=== PATIENT | female | born 1945 | race Caucasian/White ===

== ENCOUNTER 2019-06-09 21:38 | Emergency (ER) | payer MEDICARE ==
[~2019-06-09] VITALS: Ht 160 cm; Wt 50.2 kg
[2019-06-09] MEDS ORDERED: TRAM50TA2 PO (22:47)
[2019-06-09] MEDS ORDERED: LIDO700A32 TD (22:47)
[2019-06-09] MEDS ORDERED: traMADol 50MG tablet PO ONE (22:50)
[2019-06-09 23:04] VITALS: BP 145/90
== END 2019-06-09 23:09 | disposition home or self-care (01) ==
LOC: ER 21:39
DX: S20.212A Contusion of left front wall of thorax, initial encounter (principal); Z88.5 Allergy status to narcotic agent; Z79.899 Other long term (current) drug therapy; W01.0XXA Fall on same level from slipping, tripping and stumbling without subsequent striking against object, initial encounter; Y93.01 Activity, walking, marching and hiking; Y92.89 Other specified places as the place of occurrence of the external cause; Y99.8 Other external cause status
CPT/HCPCS: 71045; 99283

== ENCOUNTER 2019-06-28 23:42 | Emergency (ER) | payer MEDICARE ==
[~2019-06-28] VITALS: Ht 160 cm; Wt 56.8 kg
[~2019-06-28 23:42] MED LIST: LIDO700A32 TD; TRAM50TA2 PO
[2019-06-29] MEDS ORDERED: predniSONE 20 mg tablet PO ONE (00:20)
[2019-06-29] MEDS ORDERED: ipratropium/albuterol 3ml nebule NEB ONE ×2 (00:20→01:40)
[2019-06-29 00:41] LABS: ALANINE AMINOTRANSFERASE 28 U/L (12-78); ALBUMIN 4.3 G/DL (3.4-5.0); ALBUMIN/GLOBULIN RATIO 1.2 (1.1-1.5); ALKALINE PHOSPHATASE 111 IU/L (46-116); ANION GAP 9 (8-16); ASPARTATE AMINO TRANSFERASE 28 U/L (10-37); BILIRUBIN,TOTAL 0.4 MG/DL (0.1-1.0); BLOOD UREA NITROGEN 9 MG/DL (7-18); BUN/CREATININE RATIO 14.3 (6.6-38.0); CALCIUM 9.5 MG/DL (8.5-10.1); CHLORIDE 98 MMOL/L (99-107); CREATININE 0.63 MG/DL (0.40-0.90); GLUCOSE 138 MG/DL (70-104); SODIUM 137 MMOL/L (135-145); eGFR > 90 ML/MIN
[2019-06-29 00:50] LABS: BASOPHILS # (AUTO) 0.1 X10'3 (0-0.2); BASOPHILS % (AUTO) 0.9 % (0-1); EOSINOPHILS # (AUTO) 0.2 X10'3 (0-0.9); EOSINOPHILS % (AUTO) 2.3 % (0-6); HEMATOCRIT 40.4 % (35.0-45.0); HEMOGLOBIN 13.9 g/dl (12.0-16.0); LYMPHOCYTES # (AUTO) 2.3 X10'3 (1.1-4.8); LYMPHOCYTES % (AUTO) 23.4 % (21-51); MEAN CORPUSCULAR HEMOGLOBIN 30.7 PG (27.0-31.0); MEAN CORPUSCULAR HGB CONC 34.4 g/dL (33.0-36.5); MEAN CORPUSCULAR VOLUME 89.2 FL (78-98); MEAN PLATELET VOLUME 6.6 FL (7.4-10.4); MONOCYTES # (AUTO) 0.5 X10'3 (0-0.9); MONOCYTES % (AUTO) 4.9 % (2-12); NEUTROPHILS # (AUTO) 6.8 X10'3 (1.8-7.7); NEUTROPHILS % (AUTO) 68.5 % (42-75); PLATELET COUNT 407 X10'3 (140-440); RED BLOOD COUNT 4.52 X10'6 (4.20-5.60)
[2019-06-29 01:01] LABS: PARTIAL THROMBOPLASTIN TIME 25 SECONDS (22-32)
[2019-06-29] MEDS ORDERED: PRED20TA PO (01:38)
[2019-06-29 02:10] VITALS: BP 149/71
== END 2019-06-29 02:11 | disposition home or self-care (01) ==
LOC: ER 23:43
DX: J44.1 Chronic obstructive pulmonary disease with (acute) exacerbation (principal); Z88.5 Allergy status to narcotic agent; Z79.899 Other long term (current) drug therapy
CPT/HCPCS: 36415; 71045; 80053; 83880; 84484; 85025; 85610; 85730; 93005; 94640; 94760; 99284; J7512

== ENCOUNTER 2019-07-09 22:08 | Emergency (ER) | payer MEDICARE ==
[~2019-07-09] VITALS: Ht 160 cm; Wt 56.4 kg
--- NOTE | 2019-07-09 22:52 | NUR ---
pt returned from XR, warm blanket provided
[2019-07-09 22:53] LABS: BASOPHILS # (AUTO) 0.1 X10'3 (0-0.2); EOSINOPHILS # (AUTO) 0.2 X10'3 (0-0.9); EOSINOPHILS % (AUTO) 2.6 % (0-6); HEMATOCRIT 40.4 % (35.0-45.0); HEMOGLOBIN 13.6 g/dl (12.0-16.0); LYMPHOCYTES # (AUTO) 3.2 X10'3 (1.1-4.8); LYMPHOCYTES % (AUTO) 33.3 % (21-51); MEAN CORPUSCULAR HEMOGLOBIN 30.5 PG (27.0-31.0); MEAN CORPUSCULAR HGB CONC 33.7 g/dL (33.0-36.5); MEAN CORPUSCULAR VOLUME 90.5 FL (78-98); MEAN PLATELET VOLUME 6.7 FL (7.4-10.4); MONOCYTES # (AUTO) 0.7 X10'3 (0-0.9); NEUTROPHILS # (AUTO) 5.4 X10'3 (1.8-7.7); NEUTROPHILS % (AUTO) 56.1 % (42-75); PLATELET COUNT 408 X10'3 (140-440); RED BLOOD COUNT 4.47 X10'6 (4.20-5.60); RED CELL DISTRIBUTION WIDTH 13.6 % (11.5-14.5); WHITE BLOOD COUNT 9.6 X10'3 (4.5-11.0)
[2019-07-09 23:01] LABS: ALANINE AMINOTRANSFERASE 33 U/L (12-78); ALBUMIN 4.1 G/DL (3.4-5.0); ALBUMIN/GLOBULIN RATIO 1.1 (1.1-1.5); ALKALINE PHOSPHATASE 86 IU/L (46-116); ANION GAP 8 (8-16); ASPARTATE AMINO TRANSFERASE 30 U/L (10-37); BILIRUBIN,TOTAL 0.3 MG/DL (0.1-1.0); BLOOD UREA NITROGEN 7 MG/DL (7-18); BUN/CREATININE RATIO 10.1 (6.6-38.0); CALCIUM 9.3 MG/DL (8.5-10.1); CHLORIDE 97 MMOL/L (99-107); CREATININE 0.69 MG/DL (0.40-0.90); GLUCOSE 135 MG/DL (70-104); POTASSIUM 3.6 MMOL/L (3.5-5.1); SODIUM 135 MMOL/L (135-145); TOTAL PROTEIN 7.7 G/DL (6.4-8.2); eGFR 83 ML/MIN
[2019-07-09] MEDS ORDERED: levoFLOXACIN 750MG TABLET PO ONE (23:25)
[2019-07-09] MEDS ORDERED: methylPREDNISolone sod succ 125mg/2ml vial IV ONE (23:25)
[2019-07-09] MEDS ORDERED: PRED20TA PO (23:50)
[2019-07-09] MEDS ORDERED: LEVO500T2 PO (23:50)
[2019-07-10 00:21] VITALS: BP 169/99
== END 2019-07-10 00:24 | disposition home or self-care (01) ==
LOC: ER 22:09
DX: J44.1 Chronic obstructive pulmonary disease with (acute) exacerbation (principal); Z87.891 Personal history of nicotine dependence; Z88.6 Allergy status to analgesic agent; Z79.2 Long term (current) use of antibiotics; Z79.899 Other long term (current) drug therapy
CPT/HCPCS: 36415; 71046; 80053; 83605; 83880; 85025; 87040; 93005; 96374; 99284; J2930

== ENCOUNTER 2020-04-15 06:46 | Inpatient (IN) | payer MEDICARE ==
[2020-04-09 11:55] LABS: CLARITY,URINE CLEAR (Clear); COLOR,URINE YELLOW (Yellow); GLUCOSE, URINE NEGATIVE (Neg); KETONES,URINE NEGATIVE (Neg); LEUKOCYTE ESTERASE ,URINE NEGATIVE (Neg); NITRITES, URINE NEGATIVE (Neg); OCCULT BLOOD,URINE NEGATIVE (Neg); PH,URINE 7.5 (4.8-8.0); PROTEIN,URINE NEGATIVE (Neg); UROBILINOGEN,URINE 0.2 E.U/dL (0.2-1.0)
[2020-04-09 11:56] LABS: BASOPHILS # (AUTO) 0.1 X10'3 (0-0.2); BASOPHILS % (AUTO) 1.3 % (0-1); EOSINOPHILS # (AUTO) 0.4 X10'3 (0-0.9); EOSINOPHILS % (AUTO) 5.8 % (0-6); LYMPHOCYTES # (AUTO) 2.1 X10'3 (1.1-4.8); LYMPHOCYTES % (AUTO) 31.5 % (21-51); MEAN CORPUSCULAR HEMOGLOBIN 30.2 PG (27.0-31.0); MEAN CORPUSCULAR HGB CONC 33.5 g/dL (33.0-36.5); MEAN CORPUSCULAR VOLUME 90.2 FL (78-98); MEAN PLATELET VOLUME 6.6 FL (7.4-10.4); MONOCYTES # (AUTO) 0.5 X10'3 (0-0.9); MONOCYTES % (AUTO) 8.2 % (2-12); NEUTROPHILS # (AUTO) 3.5 X10'3 (1.8-7.7); NEUTROPHILS % (AUTO) 53.2 % (42-75); PRE OP HEMATOCRIT 40.3 % (35.0-45.0); PRE OP HEMOGLOBIN 13.5 g/dL (12.0-16.0); PRE OP PLATELET COUNT 358 X10'3 (140-440); RED BLOOD COUNT 4.46 X10'6 (4.20-5.60); RED CELL DISTRIBUTION WIDTH 13.1 % (11.5-14.5)
[2020-04-09 12:02] LABS: UA COLLECTION TYPE CLN CATCH MIDSTREAM
[2020-04-09 12:15] LABS: PRE OP PARTIAL THROMB. TIME 26 SECONDS (22-32); PRE OP PROTIME 9.4 SECONDS (9.0-12.0)
[2020-04-09 12:16] LABS: HEMOGLOBIN A1C 5.7 % (4.5-6.2)
[2020-04-09 12:17] LABS: PRE OP INR < 0.9 INR
[2020-04-09 12:24] LABS: ALBUMIN 4.2 G/DL (3.4-5.0); ALBUMIN/GLOBULIN RATIO 1.2 (1.1-1.5); ALKALINE PHOSPHATASE 96 IU/L (46-116); BLOOD UREA NITROGEN 7 MG/DL (7-18); BUN/CREATININE RATIO 10.1 (6.6-38.0); CALCIUM 8.9 MG/DL (8.5-10.1); CHLORIDE 96 MMOL/L (99-107); CREATININE 0.69 MG/DL (0.40-0.90); PRE OP ALT 40 U/L (30-65); PRE OP ANION GAP 5 (8-16); PRE OP AST 38 U/L (10-37); PRE OP BILIRUB, TOTAL 0.5 MG/DL (0.0-1.0); PRE OP GLUCOSE 82 MG/DL (70-104); PRE OP POTASSIUM 3.9 MMOL/L (3.4-5.1); PRE OP SODIUM 133 MMOL/L (135-145); TOTAL CARBON DIOXIDE 32.4 MMOL/L (24-32); TOTAL PROTEIN 7.8 G/DL (6.4-8.2); eGFR 83 ML/MIN
[2020-04-15] VITALS (22 sets, daily range): BP systolic 84–185; BP diastolic 50–85
[~2020-04-15] VITALS: Ht 160 cm; Wt 55.3 kg
[~2020-04-15 06:46] MED LIST changes: +ALBU2.5V10 INH; +ALBU8.5H8 IH; +ASPI-611 PO; +ATOR40TA72 PO; +BUDE1AMP2 INH; +LEVO100T9 PO; -LIDO700A32 TD; +LOSA1TAB36 PO; +METF-950 PO; +PRED20TA PO; -TRAM50TA2 PO; +UMEC1DIS INH; +albuterol 2.5 MG/3 ML nebule NEB ONE; +cefazolin/dext.iso 2gm/50ml 50 ML IV ONE; +famotidine 20mg tablet PO ONE; +ringers solution, lacted 1,000 ML IV SCH
[2020-04-15] MEDS ORDERED: heparin 10,000 units/1 ML INJ ONE (07:01)
[2020-04-15] MEDS ORDERED: LIDOcaine 1% (10mg/ml) 2ml vial ONE (07:01)
[2020-04-15] MEDS ORDERED: nitroPRUSSIDE in NS 100 ML IV PRN (07:03)
[2020-04-15] MEDS ORDERED: morphine 4 MG/ML inj SYRINge IV PRN ×2 (08:00→13:40)
[2020-04-15] MEDS ORDERED: ringers solution, lacted 1,000 ML IV SCH (08:00)
[2020-04-15] MEDS ORDERED: meperidine/PF 25mg/ml syringe IV PRN ×3 (08:00)
[2020-04-15] MEDS ORDERED: ondansetron/PF 4mg/2ml inj IV PRN (08:00)
[2020-04-15] MEDS ORDERED: morphine 2 MG/ML inj. syringe IV PRN ×2 (08:00→13:40)
[2020-04-15] MEDS ORDERED: albuterol 2.5 MG/3 ML nebule NEB ONE (08:00)
[2020-04-15] MEDS ORDERED: neostigmine methylsulfate 1 MG/ML 10ml vial ONE (10:39)
[2020-04-15] MEDS ORDERED: sevoflurane 250ml liquid IH ONE (10:39)
[2020-04-15] MEDS ORDERED: fentaNYL/PF 50MCG/1 ML 2ML syringe ONE (10:41)
[2020-04-15] MEDS ORDERED: midazolam 2 mg/2 ml injection ONE (10:41)
[2020-04-15] MEDS ORDERED: rocuronium 10mg/ml inj IV ONE (11:06)
[2020-04-15] MEDS ORDERED: propofol inj 20 ML IV ONE (11:06)
[2020-04-15] MEDS ORDERED: ondansetron/PF 4mg/2ml inj ONE (12:09)
[2020-04-15] MEDS ORDERED: dexamethasone sod phosphate 4mg/ml inj. ONE (12:09)
[2020-04-15] MEDS ORDERED: heparin 1,000unit/ml 10ml vial 10 ML ONE (12:09)
[2020-04-15] MEDS ORDERED: sugammadex 200mg/2ml injection IV ONE (12:42)
--- NOTE | 2020-04-15 13:06 | NUR ---
Received from OR via ICU BED , accompanied by Anesthesiologist LEXI and report given by Anesthesiolgist. PATIENT WITH 18G PIV IN RIGHT UE RUNNING LR AT 100. PATIENTT DENIES PAIN. PUSH PULLS AND AEROSPACE QUALITY ENGINEER ARE ALL EQUAL. NEUROLOGICALLY INTACT WITH THE EXCEPTION OF TONGUE DEVIATES TO THE RIGHT. 10L MASK ON WITH 100% SATURATIONS. LEFT NECK DRESSING IS CDI. VSS ART LINE TO LEFT UE Addendum: 04/15/20 at 1326 by Chester Jj RN, RN Amended: Links added.
--- NOTE | 2020-04-15 13:45 | NUR ---
Received patient from PACU with her belongings.
[2020-04-15] MEDS: ondansetron/PF 4mg/2ml inj IV PRN ×2 (14:11→22:10)
--- NOTE | 2020-04-15 14:16 | NUR ---
TRANSFERED PATIENT OVER TO THE ICU. VSS. LEFT NECK DRESSING IS CDI AND BERYL DRAIN MAINTAINING SUCTION. PATIENT REPORT GIVEN TO BISHOP VALADEZ WHO WAS PRESENT TO ACCEPT CARE. PATIENT DENIES PAIN. ASSISTED IN SET UP OF ALL LINES AND ROLLING. SKIN TO SACRAL AREA CDI. ALL PATIENT LINES INTACT. STILL NEUROLOGICALLY INTACT. CARE TURNED OVER AFTER GIVING REPORT. ALL QUESTIONS ANSWERED. Addendum: 04/15/20 at 1420 by Chester Oliva - BISHOP ALAS Amended: Links added.
--- NOTE | 2020-04-15 18:15 | NUR ---
Problems reprioritized. Patient report given, questions answered & plan of care reviewed with Sherrill ALAS.
--- NOTE | 2020-04-15 18:30 | NUR ---
Patient in room ICU 2038. I have received report from BISHOP Quinn and had the opportunity to ask questions and assume patient care.
[2020-04-15] MEDS ORDERED: predniSONE 20 mg tablet PO PRN (20:30)
[2020-04-15] MEDS ORDERED: albuterol 2.5 MG/3 ML nebule NEB PRN (20:30)
[2020-04-15] MEDS: aspirin 81mg tab.chew PO SCH (21:49)
[2020-04-15] MEDS: atorvastatin 20mg tablet PO SCH (21:49)
[2020-04-16] VITALS (28 sets, daily range): BP systolic 46–163; BP diastolic 25–79
[2020-04-16] MEDS ORDERED: albuterol 2.5 MG/3 ML nebule NEB SCH (02:00)
[2020-04-16] MEDS ORDERED: ipratropium 0.5 MG/2.5ML nebule IH SCH (02:00)
[2020-04-16 02:16] LABS: BASOPHILS % (AUTO) 0.3 % (0-1); EOSINOPHILS % (AUTO) 0 % (0-6); HEMATOCRIT 31.4 % (35.0-45.0); HEMOGLOBIN 10.8 g/dl (12.0-16.0); LYMPHOCYTES # (AUTO) 1.2 X10'3 (1.1-4.8); LYMPHOCYTES % (AUTO) 9.8 % (21-51); MEAN CORPUSCULAR HEMOGLOBIN 30.8 PG (27.0-31.0); MEAN CORPUSCULAR HGB CONC 34.5 g/dL (33.0-36.5); MEAN CORPUSCULAR VOLUME 89.3 FL (78-98); MEAN PLATELET VOLUME 6.6 FL (7.4-10.4); MONOCYTES # (AUTO) 0.6 X10'3 (0-0.9); MONOCYTES % (AUTO) 5.1 % (2-12); NEUTROPHILS % (AUTO) 84.8 % (42-75); PLATELET COUNT 337 X10'3 (140-440); RED BLOOD COUNT 3.52 X10'6 (4.20-5.60); RED CELL DISTRIBUTION WIDTH 12.7 % (11.5-14.5); WHITE BLOOD COUNT 11.8 X10'3 (4.5-11.0)
[2020-04-16 02:34] LABS: ALANINE AMINOTRANSFERASE 29 U/L (12-78); ALKALINE PHOSPHATASE 64 IU/L (46-116); ANION GAP 6 (8-16); ASPARTATE AMINO TRANSFERASE 33 U/L (10-37); BILIRUBIN,TOTAL 0.4 MG/DL (0.1-1.0); BLOOD UREA NITROGEN 11 MG/DL (7-18); BUN/CREATININE RATIO 16.7 (6.6-38.0); CALCIUM 8.4 MG/DL (8.5-10.1); CHLORIDE 94 MMOL/L (99-107); CREATININE 0.66 MG/DL (0.40-0.90); GLUCOSE 189 MG/DL (70-104); POTASSIUM 4.5 MMOL/L (3.5-5.1); SODIUM 127 MMOL/L (135-145); TOTAL CARBON DIOXIDE 27.4 MMOL/L (24-32); eGFR 88 ML/MIN
[2020-04-16] MEDS: phenylephrine inj 50 MG in normal saline 250ml IV soln 245 ML IV PRN (03:10)
--- NOTE | 2020-04-16 06:15 | NUR ---
Patient in room ICU 2038. I have received report from manufacturing supervisor 2nd shift RN and had the opportunity to ask questions and assume patient care.
--- NOTE | 2020-04-16 06:38 | NUR ---
Problems reprioritized. Patient report given, questions answered & plan of care reviewed with BISHOP Cristobal.
[2020-04-16] MEDS: HYDROchlorothiazide 12.5mg capsule PO SCH (07:39)
[2020-04-16] MEDS: levoTHYROXINE 75mcg tablet PO SCH (07:39)
[2020-04-16] MEDS: metFORMIN 500mg tablet PO SCH ×2 (07:39→20:00)
[2020-04-16] MEDS: losartan 50mg tablet PO SCH (07:39)
[2020-04-16] MEDS ORDERED: non-formulary drug (Umeclidinium Brm/Vilanterol Tr (Anoro Ellipta 62.5-25 Mcg INH) 1 PUFF) INH SCH (08:00)
[2020-04-16] MEDS ORDERED: non-formulary drug (Losartan/Hydrochlorothiazide (Losartan-Hctz 50-12.5 Mg Tab) 1 TAB) PO SCH (08:00)
[2020-04-16] MEDS: budesonide 0.5mg/2ml UD nebule IH SCH ×2 (08:54→20:09)
[2020-04-16] MEDS: ipratropium/albuterol 3ml nebule NEB SCH ×3 (08:54→20:09)
--- NOTE | 2020-04-16 11:00 | NUR ---
Surgeon rounded on PT. Verbal order to DC art line and drain. If pressures continue to do well possibly DC PT to home this afternoon.
[2020-04-16] MEDS: ondansetron/PF 4mg/2ml inj IV PRN (15:16)
--- NOTE | 2020-04-16 15:29 | NUR ---
Sat PT to edge of bed at 1400. Removed 02. PT's sats dropped. Placed back on 2L NC. PT recovered fine. Assisted PT to chair. After about fifteen minutes PT became lethargic, hyperventilating and diaphoretic. Called for help. RT and charge present. BP low. Placed PT back to bed and on 4L NC. PT immediately recovered. following commands and appropriate. notified. Orders to keep PT another night. Blood sugars 163.
--- NOTE | 2020-04-16 17:35 | NUR ---
BERYL drain removed with scant amount of bleeding. Sterile 2x2 applied with tegaderm. Will continue to monitor.
--- NOTE | 2020-04-16 18:30 | NUR ---
Patient in room ICU 2038. I have received report from BISHOP Cristobal and had the opportunity to ask questions and assume patient care.
--- NOTE | 2020-04-16 18:31 | NUR ---
PT has 2 greater than 160 blood sugars. Notified surgeon. OK to start hyperglycemic protocol.
[2020-04-16] MEDS ORDERED: dextrose 50%-water 50ml dispensing syringe IV PRN ×4 (18:45)
[2020-04-16] MEDS ORDERED: MESSAGE TO PHARMACY PO ONE (18:45)
[2020-04-16] MEDS ORDERED: glucagon, human recombinant 1mg kit SUBCUT PRN ×2 (18:45)
[2020-04-16] MEDS ORDERED: insulin Lispro (HumaLOG) vial - multi-dose SQ SCH (18:45)
[2020-04-16] MEDS ORDERED: dextrose ORAL solution 15 GM/59 ML bottle PO PRN ×4 (18:45)
[2020-04-16] MEDS: insulin Lispro (HumaLOG) vial - multi-dose SQ SCH (19:57)
[2020-04-16] MEDS: atorvastatin 20mg tablet PO SCH (20:39)
[2020-04-16] MEDS: aspirin 81mg tab.chew PO SCH (20:39)
[2020-04-16] MEDS: insulin glargine (Lantus) pen - multi-dose SQ SCH (20:45)
[2020-04-17] VITALS (18 sets, daily range): BP systolic 16–155; BP diastolic 40–87
[2020-04-17] MEDS: phenylephrine inj 50 MG in normal saline 250ml IV soln 245 ML IV PRN (02:28)
[2020-04-17] MEDS: ipratropium/albuterol 3ml nebule NEB SCH ×4 (02:39→20:44)
[2020-04-17 06:11] LABS: BASOPHILS % (AUTO) 0.2 % (0-1); EOSINOPHILS % (AUTO) 0.1 % (0-6); HEMOGLOBIN 10.2 g/dl (12.0-16.0); LYMPHOCYTES # (AUTO) 2.2 X10'3 (1.1-4.8); LYMPHOCYTES % (AUTO) 19.8 % (21-51); MEAN CORPUSCULAR HEMOGLOBIN 30.1 PG (27.0-31.0); MEAN CORPUSCULAR VOLUME 88.7 FL (78-98); MONOCYTES # (AUTO) 1.2 X10'3 (0-0.9); MONOCYTES % (AUTO) 10.7 % (2-12); NEUTROPHILS # (AUTO) 7.7 X10'3 (1.8-7.7); NEUTROPHILS % (AUTO) 69.2 % (42-75); PLATELET COUNT 390 X10'3 (140-440); RED BLOOD COUNT 3.38 X10'6 (4.20-5.60); RED CELL DISTRIBUTION WIDTH 12.6 % (11.5-14.5); WHITE BLOOD COUNT 11.1 X10'3 (4.5-11.0)
[2020-04-17 06:19] LABS: ALBUMIN 3.2 G/DL (3.4-5.0); ANION GAP 5 (8-16); BLOOD UREA NITROGEN 8 MG/DL (7-18); BUN/CREATININE RATIO 11.4 (6.6-38.0); CALCIUM 8.6 MG/DL (8.5-10.1); CHLORIDE 92 MMOL/L (99-107); GLUCOSE 82 MG/DL (70-104); POTASSIUM 3.6 MMOL/L (3.5-5.1); SODIUM 127 MMOL/L (135-145); TOTAL CARBON DIOXIDE 30.2 MMOL/L (24-32); eGFR 82 ML/MIN
--- NOTE | 2020-04-17 06:30 | NUR ---
Problems reprioritized. Patient report given, questions answered & plan of care reviewed with BISHOP Lindsey.
--- NOTE | 2020-04-17 06:30 | NUR ---
Patient in room ICU 2038. I have received report from and had the opportunity to ask questions and assume patient care.
--- NOTE | 2020-04-17 06:31 | NUR ---
Patient in room ICU 2038. I have received report from BISHOP Mccartney and had the opportunity to ask questions and assume patient care.
[2020-04-17] MEDS: levoTHYROXINE 75mcg tablet PO SCH (07:19)
[2020-04-17] MEDS: HYDROchlorothiazide 12.5mg capsule PO SCH (08:00)
[2020-04-17] MEDS: losartan 50mg tablet PO SCH (08:00)
[2020-04-17] MEDS: budesonide 0.5mg/2ml UD nebule IH SCH ×2 (08:11→20:44)
--- NOTE | 2020-04-17 13:50 | NUR ---
Patient in room PCU 3023. I have received report from Rosalia ALAS and had the opportunity to ask questions and assume patient care.
--- NOTE | 2020-04-17 13:52 | NUR ---
Problems reprioritized. Patient report given, questions answered & plan of care reviewed with BISHOP Doty.
[2020-04-17] MEDS: insulin Lispro (HumaLOG) vial - multi-dose SQ SCH ×2 (15:15→19:17)
--- NOTE | 2020-04-17 15:30 | NUR ---
Pt stable for transfer to PCU. Transported via wheelchair. Placed pt on tele monitor and sent belongings with pt.
--- NOTE | 2020-04-17 18:27 | NUR ---
Problems reprioritized. Patient report given, questions answered & plan of care reviewed with Serena RN.
--- NOTE | 2020-04-17 18:42 | NUR ---
Patient in room PCU 3023. I have received report from Marta ALAS and had the opportunity to ask questions and assume patient care.
[2020-04-17] MEDS: aspirin 81mg tab.chew PO SCH (21:04)
[2020-04-17] MEDS: atorvastatin 20mg tablet PO SCH (21:04)
[2020-04-17] MEDS: insulin glargine (Lantus) pen - multi-dose SQ SCH (21:12)
[2020-04-18] MEDS: ipratropium/albuterol 3ml nebule NEB SCH ×2 (01:58→07:06)
[2020-04-18 02:00] VITALS: BP 145/56
--- NOTE | 2020-04-18 06:00 | NUR ---
Patient in room PCU 3023. I have received report from Serena ALAS and had the opportunity to ask questions and assume patient care.
[2020-04-18 07:00] VITALS: BP 163/68
[2020-04-18] MEDS: budesonide 0.5mg/2ml UD nebule IH SCH (07:06)
[2020-04-18] MEDS: losartan 50mg tablet PO SCH (07:22)
[2020-04-18] MEDS: levoTHYROXINE 75mcg tablet PO SCH (07:22)
[2020-04-18] MEDS: insulin Lispro (HumaLOG) vial - multi-dose SQ SCH (08:30)
[2020-04-18 10:17] LABS: BASOPHILS # (AUTO) 0.1 X10'3 (0-0.2); BASOPHILS % (AUTO) 0.5 % (0-1); EOSINOPHILS % (AUTO) 0.3 % (0-6); HEMATOCRIT 30.5 % (35.0-45.0); HEMOGLOBIN 10.6 g/dl (12.0-16.0); LYMPHOCYTES # (AUTO) 1.6 X10'3 (1.1-4.8); LYMPHOCYTES % (AUTO) 16.4 % (21-51); MEAN CORPUSCULAR HEMOGLOBIN 31.2 PG (27.0-31.0); MEAN CORPUSCULAR HGB CONC 34.7 g/dL (33.0-36.5); MEAN CORPUSCULAR VOLUME 89.9 FL (78-98); MEAN PLATELET VOLUME 6.6 FL (7.4-10.4); MONOCYTES # (AUTO) 0.9 X10'3 (0-0.9); MONOCYTES % (AUTO) 8.9 % (2-12); NEUTROPHILS # (AUTO) 7.4 X10'3 (1.8-7.7); NEUTROPHILS % (AUTO) 73.9 % (42-75); PLATELET COUNT 359 X10'3 (140-440); RED CELL DISTRIBUTION WIDTH 12.8 % (11.5-14.5)
[2020-04-18 10:37] LABS: ALANINE AMINOTRANSFERASE 29 U/L (12-78); ALBUMIN 3.4 G/DL (3.4-5.0); ALBUMIN/GLOBULIN RATIO 1.1 (1.1-1.5); ALKALINE PHOSPHATASE 64 IU/L (46-116); ANION GAP 2 (8-16); ASPARTATE AMINO TRANSFERASE 34 U/L (10-37); BILIRUBIN,TOTAL 0.4 MG/DL (0.1-1.0); BLOOD UREA NITROGEN 8 MG/DL (7-18); BUN/CREATININE RATIO 10.7 (6.6-38.0); CALCIUM 8.2 MG/DL (8.5-10.1); CHLORIDE 97 MMOL/L (99-107); CREATININE 0.75 MG/DL (0.40-0.90); GLUCOSE 128 MG/DL (70-104); MAGNESIUM 1.9 MG/DL (1.5-2.4); PHOSPHORUS 2.8 MG/DL (2.3-4.5); POTASSIUM 3.3 MMOL/L (3.5-5.1); SODIUM 133 MMOL/L (135-145); TOTAL CARBON DIOXIDE 34.1 MMOL/L (24-32); TOTAL PROTEIN 6.6 G/DL (6.4-8.2); eGFR 76 ML/MIN
--- NOTE | 2020-04-18 10:55 | NUR ---
Per MD orders, patient stable for DC home. No new prescriptions. Discharge papers reviewed with patient and caregiver and all questions answered to their satisfaction. PIV discontinued; cannula intact. Tele monitoring discontinued. All belongings stayed on patient. Transferred to private vehicle accompanied by aide and caregiver.
--- NOTE | 2020-04-21 13:48 | NUR ---
Case Management DC follow up: spoke to pt niece, Tabitha Chappell, via telephone. s/p:L carotid endarterectomy. Reports:"doing fine, very glad to be home". Denies: acute/continuous CP, emergent SOB, resp distress, N/V, CROWE, blurry vision, vertigo, syncope episodes, weakness,emergent general pain, abd tenderness/distension, bladder pain, dysuria, polyuria, hematuria, retention, constipation, diarrhea, fever, unexplained bleeding, bruising. Went over orthostatic hypotension protocol as a precaution. Verbalizes understanding of s/s that warrant 9-11/ER visit for further evaluation. Verbalizes understanding of Rx and why prescribed, resumes current Rx, taking as ordered, no ase r/t polypharmacy. Acknowledges need to schedule/keep follow up appts w/ PCP/Ethel Foreman/[facility]. Change Release Manager/Dr Morales, pt will call to schedule appt as needed. Dr Stephenson 04/23/20. Verbalizes compliance w/DC aftercare. Needs met, questions answered at DC, no further questions or concerns at this time.
== END 2020-04-18 10:45 | disposition home or self-care (01) | DRG 38 ==
LOC: PAS IN 06:46 → EDSTATUS 11:00 → ICU 2S 13:56 → PCU 3S 04-17 15:35
PROVIDERS: ADMIT Surgery; ATTEND Surgery
PROC: 03CJ0ZZ Extirpation of Matter from Left Common Carotid Artery, Open Approach (ICD-10-PCS; principal; 2020-04-16)
DX: I65.22 Occlusion and stenosis of left carotid artery (principal); E87.1 Hypo-osmolality and hyponatremia; I73.9 Peripheral vascular disease, unspecified; E78.5 Hyperlipidemia, unspecified; I95.9 Hypotension, unspecified; I10 Essential (primary) hypertension; Z82.3 Family history of stroke; Z90.710 Acquired absence of both cervix and uterus; Z88.5 Allergy status to narcotic agent; Z88.8 Allergy status to other drugs, medicaments and biological substances; Z79.84 Long term (current) use of oral hypoglycemic drugs; Z79.01 Long term (current) use of anticoagulants; Z79.1 Long term (current) use of non-steroidal anti-inflammatories (NSAID); Z79.82 Long term (current) use of aspirin; Z90.89 Acquired absence of other organs; Z03.818 Encounter for observation for suspected exposure to other biological agents ruled out
CPT/HCPCS: 36415; 71046; 80048; 80053; 81003; 82948; 83036; 83735; 84100; 84443; 85025; 85610; 85730; 86885; 86900; 86901; 87081; 94640; 94760; 95813; 95816; A4618; A6258; A6402; A7000; C1768; C9399; G0378; J1100; J1644; J1815; J2001; J2250; J2270; J2370; J2405; J2704; J2710; J3010; J7040; J7050; J7120; J7626

== ENCOUNTER 2020-11-10 05:46 | Outpatient (CLI) | payer MEDICARE ==
[~2020-11-10 05:46] MED LIST changes: -albuterol 2.5 MG/3 ML nebule NEB ONE; -cefazolin/dext.iso 2gm/50ml 50 ML IV ONE; -famotidine 20mg tablet PO ONE; -ringers solution, lacted 1,000 ML IV SCH
== END 2020-11-10 23:59 | disposition home or self-care (01) ==
LOC: RT 05:46
PROVIDERS: ATTEND Internal Medicine Critical Care Medicine
DX: J44.9 Chronic obstructive pulmonary disease, unspecified (principal)
CPT/HCPCS: 94618

== ENCOUNTER 2020-11-11 22:53 | Emergency (ER) | payer MEDICARE ==
[~2020-11-11] VITALS: Ht 160 cm; Wt 54.5 kg
[2020-11-11] MEDS ORDERED: ipratropium/albuterol 3ml nebule NEB ONE (23:10)
[2020-11-11 23:15] LABS: BASOPHILS # (AUTO) 0.1 X10'3 (0-0.2); BASOPHILS % (AUTO) 0.4 % (0-1); EOSINOPHILS # (AUTO) 0.1 X10'3 (0-0.9); EOSINOPHILS % (AUTO) 0.4 % (0-6); HEMOGLOBIN 11.9 g/dl (12.0-16.0); LYMPHOCYTES # (AUTO) 1.3 X10'3 (1.1-4.8); MEAN CORPUSCULAR HEMOGLOBIN 25.8 PG (27.0-31.0); MEAN CORPUSCULAR HGB CONC 33.2 g/dL (33.0-36.5); MEAN CORPUSCULAR VOLUME 77.8 FL (78-98); MEAN PLATELET VOLUME 6.9 FL (7.4-10.4); MONOCYTES # (AUTO) 0.6 X10'3 (0-0.9); MONOCYTES % (AUTO) 3.9 % (2-12); NEUTROPHILS # (AUTO) 14.4 X10'3 (1.8-7.7); NEUTROPHILS % (AUTO) 87.3 % (42-75); PLATELET COUNT 345 X10'3 (140-440); RED BLOOD COUNT 4.62 X10'6 (4.20-5.60); RED CELL DISTRIBUTION WIDTH 16.7 % (11.5-14.5); WHITE BLOOD COUNT 16.5 X10'3 (4.5-11.0)
[2020-11-11 23:29] LABS: ALANINE AMINOTRANSFERASE 38 U/L (12-78); ALBUMIN 4.2 G/DL (3.4-5.0); ALBUMIN/GLOBULIN RATIO 1.1 (1.1-1.5); ALKALINE PHOSPHATASE 90 IU/L (46-116); ANION GAP 8 (8-16); ASPARTATE AMINO TRANSFERASE 36 U/L (10-37); BILIRUBIN,TOTAL 0.5 MG/DL (0.1-1.0); BLOOD UREA NITROGEN 10 MG/DL (7-18); BUN/CREATININE RATIO 18.2 (6.6-38.0); CALCIUM 8.9 MG/DL (8.5-10.1); CHLORIDE 88 MMOL/L (99-107); CREATININE 0.55 MG/DL (0.40-0.90); GLUCOSE 199 MG/DL (70-104); POTASSIUM 3.6 MMOL/L (3.5-5.1); SODIUM 123 MMOL/L (135-145); TOTAL CARBON DIOXIDE 27.1 MMOL/L (24-32); TOTAL PROTEIN 7.9 G/DL (6.4-8.2); eGFR > 90 ML/MIN
[2020-11-11] MEDS ORDERED: azithromycin/NS 500mg/250ml 250 ML IV ONE (23:50)
[2020-11-11] MEDS ORDERED: aspirin 325mg tablet PO ONE (23:50)
[2020-11-11] MEDS ORDERED: normal saline 1000ml 1,000 ML IV ONE (23:50)
[2020-11-11] MEDS ORDERED: CefTRIAXone/D5W-Rocephin 1gm 50 ML IV ONE (23:50)
--- NOTE | 2020-11-12 00:32 | NUR ---
After obtaining permission from patient, updated niece/caregiver Tabitha on patient status. Tabitha: [phone].
--- NOTE | 2020-11-12 03:00 | NUR ---
MD CARRILLO UPDATED ON PATIENT'S VITAL SIGN TRENDS.
[2020-11-12] MEDS ORDERED: methylPREDNISolone sod succ 125mg/2ml vial IV ONE (03:15)
[2020-11-12] MEDS ORDERED: triamcinolone acetonide 40mg/ml inj IM ONE (03:15)
[2020-11-12] MEDS ORDERED: AZIT-63 PO (03:16)
[2020-11-12 03:40] VITALS: BP 139/66
--- NOTE | 2020-11-12 03:44 | NUR ---
CAREGIVER RADHA NOTIFIED THAT PATIENT IS READY FOR DISCHARGE.
== END 2020-11-12 04:30 | disposition home or self-care (01) ==
LOC: ER 22:53
DX: J44.1 Chronic obstructive pulmonary disease with (acute) exacerbation (principal); E87.1 Hypo-osmolality and hyponatremia; R06.02 Shortness of breath; R09.89 Other specified symptoms and signs involving the circulatory and respiratory systems; R05 Cough; Z88.6 Allergy status to analgesic agent; Z88.5 Allergy status to narcotic agent; Z79.82 Long term (current) use of aspirin; Z79.2 Long term (current) use of antibiotics; Z79.899 Other long term (current) drug therapy
CPT/HCPCS: 36415; 71045; 80053; 83605; 83880; 84145; 84484; 85025; 87040; 93005; 94640; 96365; 96366; 96368; 96372; 96375; 99285; J0456; J0696; J2930; J3301; J7030; 94760